=== PATIENT | female | born 1965 | race Two or more races ===

== ENCOUNTER 2017-02-26 09:35 | Emergency (ER) | payer OTHER ==
[~2017-02-26] VITALS: Ht 165.1 cm; Wt 89.4 kg
[2017-02-26] MEDS ORDERED: [UNRECOGNIZED DRUG - REMARK] (09:43)
[2017-02-26 09:48] VITALS: BP 105/66
[2017-02-26] MEDS ORDERED: Fluorescein Strips RIGHT EYE ONE (10:00)
[2017-02-26] MEDS ORDERED: Tetracaine 0.5% Opth 4ml Soln LEFT EYE ONE (10:00)
[2017-02-26] MEDS ORDERED: GENOPTIC O.O1 APPLIC LEFT EYE (10:35)
[2017-02-26 11:08] VITALS: BP 109/67
[2017-02-26 11:13] VITALS: BP 109/67
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
== END 2017-02-26 11:08 | disposition home or self-care (01) ==
LOC: EMR 11:00
DX: E11.9 Type 2 diabetes mellitus without complications (principal); T26.10XA Burn of cornea and conjunctival sac, unspecified eye, initial encounter; X10.2XXA Contact with fats and cooking oils, initial encounter; Y92.511 Restaurant or cafe as the place of occurrence of the external cause; Y99.0 Civilian activity done for income or pay; T26.01XA Burn of right eyelid and periocular area, initial encounter
CPT/HCPCS: 99284